=== PATIENT | female | born 1935 | race Caucasian/White ===

== ENCOUNTER 2016-03-18 07:05 | Day surgery (SDC) | payer MEDICARE ==
[~2016-03-18] VITALS: Ht 154.9 cm; Wt 59.0 kg
[~2016-03-18 07:05] MED LIST: ASCO-294 PO; ASPI-973 PO; CHOL10008 PO; GARL1000 PO; LECI518C PO; OMEG-38 PO; Sodium Chloride LOK Flush 10 mL Syringe IV PRN; VITA400C64 PO; VITA80006 PO; fentaNYL-PF 50 mCg/mL 2 mL Inj IVPUSH PRN
[2016-03-18 07:36] VITALS: BP 135/75; PULSE 84; RESP 18; O2SAT 97
[2016-03-18] MEDS: 0.9% Sodium Chloride 1,000 ML IV SCH ×2 (07:48→08:10)
[2016-03-18 08:42] VITALS: BP 140/79; PULSE 75; RESP 14; O2SAT 95
[2016-03-18 08:50] VITALS: BP 137/70; PULSE 75; RESP 17; O2SAT 93
[2016-03-18 09:00] VITALS: BP 134/69; PULSE 75; RESP 17; O2SAT 95
--- NOTE | 2016-03-18 09:10 | ENDO ---
[address] [address] ENDOSCOPY PROCEDURE PATIENT: RONNIE FRENCH : 1935 MR#: [id number] ADMIT: 03/18/2016 JOB ID: [id number] DATE OF SERVICE: 03/18/2016 TYPE OF OPERATION: 1. Esophagogastroduodenoscopy with biopsy. 2. Colonoscopy with biopsy and gastrointestinal spot tattoo. PREOPERATIVE DIAGNOSIS(ES): 1. Gastroesophageal reflux disease. 2. History of tubular adenoma polyps. POSTOPERATIVE DIAGNOSIS(ES): 1. Mild nonerosive gastritis. 2. A 3 mm gastric polyp, removed by cold biopsy forceps. 3. Duodenal polyp versus prominent fold within the posterior bulb, status post biopsy and hemoclip x1. 4. Rectal prolapse. 5. Possible rectal polyp above the dentate line. 6. There were two 3 mm polyps in sigmoid colon, removed by cold biopsy forceps. 7. Mild sigmoid diverticulosis. 8. A broad-based polyp seen at 50 cm from the anus, status post biopsy and gastrointestinal spot tattoo. ANESTHESIA: Fentanyl 100 mcg, Versed 4 mg IV administered. DESCRIPTION OF PROCEDURE: After risks and benefits were explained to the patient, informed consent was obtained. After anesthesia administered, upper endoscope was then inserted in the mouth, intubating into the esophagus, stomach, second portion of duodenum, and mucosa carefully examined. After procedure done, the scope withdrawn and the procedure terminated. FINDINGS: Upon inspection of the esophagus, esophagus appeared normal without masses, ulcers, or lesions. Z-line located at 40 cm from incisors. Upon entering the stomach, there was mild nonerosive gastritis that was seen. Retroflexion showed a gastric polyp that was removed by cold biopsy forceps. Upon entering the duodenum, there was a possible polyp versus prominent fold at the posterior bulb which was biopsied. After biopsy, there was a prominent amount of bleeding that was oozing from the site, and a hemoclip was placed. The duodenal first and second portions were normal. Biopsies were also taken from antrum, body of the stomach and distal esophagus. Upon inspection of the anus, there is a very prominent rectal polyp that was seen. During the entire examination, there were two 3 mm polyps in sigmoid colon, removed by cold biopsy forceps. There was also mild sigmoid diverticulosis. There was also a prominent, broad-based polyp at 50 cm from the anus of which biopsies were taken, and GI spot tattoo was done proximal and distal to this lesion. No other polyps or masses were seen. Retroflexion showed a rectal anal polyp that was located below the dentate line were the rectal polyp was seen. IMPRESSIONS: 1. Mild nonerosive gastritis. 2. Gastric polyp, removed by cold biopsy forceps. 3. Duodenal polyp versus fold at the posterior bulb, status post biopsy and hemoclip placed. 4. Rectal prolapse. 5. Rectal/anal polyp seen below the dentate line on retroflexion. 6. There were two 3 mm polyps seen in the sigmoid colon, removed by cold biopsy forceps. 7. A broad-based polyp that was seen at 50 cm from the anus, status post biopsy and gastrointestinal spot tattoo proximal and distal to lesion. RECOMMENDATIONS: 1. Await pathology results. 2. Referral to General Surgery for evaluation of the rectal prolapse and also the broad-based polyp for evaluation for resection.
--- NOTE | 2016-03-21 15:10 | PATH ---
SURGICAL PATHOLOGY Attending Physician:Paul Dial MD CASE STATUS: Signed Out PATIENT NAME: RONNIE FRENCH PID: [id number] : 1935 DATE COLLECTED:03/18/2016 16:59 SPECIMEN: 1: Duodenum, Biopsy 2: Stomach, Antrum, Biopsy 3: Gastric, Biopsy 4: Stomach, Polyp, Biopsy 5: Esophagus, Biopsy 6: Colon, Biopsy 7: Colon, Biopsy CLINICAL HISTORY: 1: DUODENAL BIOPSY (R/O FOLD VS POLYP) 2: ANTRUM BIOPSY 3: GASTRIC BODY BIOPSY 4: GASTRIC POLYP 5: DISTAL ESOPHAGUS BIOPSY 6: SIGMOID POLYP X1 7: HEPATIC FLEXURE @ 55CM POLYP BIOPSY FINAL DIAGNOSIS: 1. Duodenal Biopsy: Duodenal mucosa with gastric surface metaplasia. Negative for dysplasia and malignancy. 2. Antrum Biopsy: Gastric antral mucosa with focal surface erosion. Negative for Helicobacter organisms. Negative for intestinal metaplasia. Negative for dysplasia and malignancy. 3. Gastric Body Biopsy: Gastric body mucosa with no diagnostic alterations. Negative for intestinal metaplasia. Negative for Helicobacter organisms. Negative for dysplasia and malignancy. 4. Gastric Polyp: Fundic gland polyp. Negative for intestinal metaplasia. Negative for dysplasia and malignancy. 5. Distal Esophagus Biopsy: Squamous mucosa with no diagnostic alterations. Negative for intestinal metaplasia. Negative for dysplasia and malignancy. 6. Sigmoid Colon Polyp x1: Tubular adenoma. 7. Hepatic Flexure at 55 CM Polyp Biopsy: Tubular adenoma, multiple fragments. ICD10 K29.70, D12.5, D12.3, K31.7 GROSS DESCRIPTION: The specimen is received in seven formalin filled containers labeled with the patient's name. 1). The specimen is sublabeled "duodenal" and consists of a 0.3 x 0.3 x 0.3 CM portion of tissue which is entirely submitted in cassette 1A. 2). The specimen is sublabeled "antral" and consists of 2 portions of tissue which aggregate to 0.4 x 0.3 x 0.2 CM. The specimen is entirely submitted in cassette 2A. 3). The specimen is sublabeled "gastric body" and consists of a 0.4 x 0.3 x 0.3 CM portion of tissue which is entirely submitted in cassette 3A. 4). The specimen is sublabeled "gastric polyp" and consists of 2 portions of tissue which aggregate to 0.3 x 0.3 x 0.2 CM. The specimen is entirely submitted in cassette 4A. 5). The specimen is sublabeled "distal esophagus" and consists of 2 portions of tissue which aggregate to 0.5 x 0.3 x 0.2 CM. The specimen is entirely submitted in cassette 5A. 6). The specimen is sublabeled "sigmoid polyp X1" and consists of 2 portions of tissue which aggregate to 0.3 x 0.3 x 0.2 CM. Specimen is entirely submitted in cassette 6A. 7). The specimen is sublabeled "hepatic flexure at 55 CM polyp" and consists of 3 portions of tissue which aggregate to 0.3 x 0.3 x 0.2 CM. The specimen is entirely submitted in cassette 7A. 03/18/2016 DAC MICRO DESCRIPTION: Please see diagnosis. ICD-9 CODES: CPT CODES: 1: 74123 2: 51871 3: 68643 4: 17663 5: 42129 6: 28645 7: 59977 Electronically Signed Out Susy Hale MD [facility] Pathology [facility] [address], [place] [address] Technical component performed at [facility], [facility] [address], [place], [address]
== END 2016-03-18 23:59 | disposition home or self-care (01) ==
LOC: END 07:05
PROVIDERS: ATTEND Internal Medicine Gastroenterology
DX: Z12.11 Encounter for screening for malignant neoplasm of colon (principal); D12.3 Benign neoplasm of transverse colon; D12.5 Benign neoplasm of sigmoid colon; K57.30 Diverticulosis of large intestine without perforation or abscess without bleeding; K62.1 Rectal polyp; K62.3 Rectal prolapse; Z86.010 Personal history of colon polyps; K29.70 Gastritis, unspecified, without bleeding; K31.7 Polyp of stomach and duodenum; K21.9 Gastro-esophageal reflux disease without esophagitis; K22.2 Esophageal obstruction; E78.00 Pure hypercholesterolemia, unspecified; R05 Cough; K58.9 Irritable bowel syndrome, unspecified; Z86.73 Personal history of transient ischemic attack (TIA), and cerebral infarction without residual deficits; Z79.82 Long term (current) use of aspirin
CPT/HCPCS: 43239; 45380; 45381; J2250; J7030

== ENCOUNTER 2016-06-21 13:26 | Emergency (ER) | payer MEDICARE ==
[~2016-06-21] VITALS: Ht 154.9 cm; Wt 59.1 kg
[~2016-06-21 13:26] MED LIST changes: -Sodium Chloride LOK Flush 10 mL Syringe IV PRN; -fentaNYL-PF 50 mCg/mL 2 mL Inj IVPUSH PRN
[2016-06-21 13:28] VITALS: BP 149/79; PULSE 89; RESP 16; O2SAT 94
[2016-06-21 13:55] LABS: BASOPHILS % (AUTO) 0.7 % (0-3); EOSINOPHILS % (AUTO) 2.3 % (0-5); MONOCYTES % (AUTO) 6.7 % (4-12); Mean Corpuscular Hemoglobin 29.7 pg (27.0-35.0); Mean Corpuscular Volume 88.9 fL (81-100); NEUTROPHILS % (AUTO) 63.7 % (40-74); Platelet Count 249 bil/L (150-400)
--- NOTE | 2016-06-21 14:03 | ED.REPORT ---
HPI-Chest Pain 40 and Over Date of Service Jun 21, 2016 ED Provider: Uday Packer MD An 81 year old female with a history of TIA and GERD presents to the ED from complaining of burning chest pain onset yesterday evening that lasted a few hours until bed time. Associated symptoms include nausea and blurry vision earlier in the day yesterday that lasted for several minutes, however she was able to go about her day, eat, and do her chores after symptoms resolved. Nausea and blurry vision gave the patient concern because of her history of TIA , and she came into the ED for further evaluation. She denies any current chest pain, SOB, or any other symptoms. She has had episodes of chest pain in the past , but has no history of heart disease. However she does have a family history of heart disease Nursing Notes Stated Complaint: CHEST PAIN/SENT FROM Chief Complaint: Chest Pain Nursing Notes Reviewed: Yes Allergies: Coded Allergies: Olmlaqj-Ogw-Apw Reductase Inhibitor (Verified Allergy, Unknown, 06/21/16) erythromycin base (Verified Allergy, Unknown, 06/21/16) Scheduled Aspirin (Aspirin) 81 Mg Tablet 81 MG PO DAILY Vitamin E Mixed (Vitamin E) 400 Unit Capsule 400 UNIT PO DAILY Miscellaneous Medications Ascorbate Calcium (Vitamin C) 500 Mg Tablet 500 MG PO Cholecalciferol (Vitamin D3) (Vitamin D3) 1,000 Unit Tab.chew 1,000 UNIT PO Garlic (Garlic Oil) 1,000 Mg Capsule 1,000 MG PO Lecithin (Lecithin) 518 Mg Capsule 518 MG PO [place]-3/Dha/Epa/Fish Oil (Fish Oil 1,000 mg Softgel) 1 Each Capsule 1 EACH PO Vitamin A (Vitamin A) 8,000 Unit Capsule 8,000 UNIT PO General Time Seen by MD: 13:50 Chief Complaint Chest pain Hx Obtained From: Patient Arrived By: Walk-in Sudden in Onset?: No Onset Occurred: Yesterday (yesterday evening) Symptom Duration: 1 - 4 hours (a few hours) Severity: Current: No pain currently Severity: Maximum: Moderate Recent Healthcare: No recent doctor visit Similar Sx Previous: No Past Medical History Past Medical History TIA, 2013 Reports: GERD, Denies: Diabetes mellitus, Hypertension Past Surgical History Reports: Appendectomy, Cholecystectomy Reports: Tubal ligation Family History Father had heart disease at age 59. Brother had [place] at age 58. Denies: Diabetes mellitus, Hypertension Smoking History Never Smoker Ambulatory Status Independent Review of Systems Constitutional: Denies: Chills, Fever Respiratory: Denies: Shortness of breath Cardiovascular: Reports: Chest pain GI: Reports: Nausea Complete sys rev & neg: except as marked. Eyes: Reports: Blurred left, Blurred right Physical Exam Initial Vital Signs Vital Signs (First) Date Time Temp Pulse Resp B/P Pulse Ox O2 Delivery O2 Flow Rate FiO2 06/21/16 13:28 36.6 89 16 149/79 94 Room Air Initial VS: Reviewed General/Constitutional: Awake, Alert Respiratory / Chest: Atraumatic, Breath sounds NL, Breath sounds = bilat, No respiratory distress, No rales, No rhonchi, No wheezing Cardiovascular: Heart rate NL, Regular rhythm, Heart sounds NL, No gallop, No murmurs, No rubs Abdomen: No guarding, No rebound Skin: Atraumatic, Color NL, Warm, Dry Neurologic: Oriented X3, Speech NL, No motor deficits, CN II - XII intact Mental Status: Negative: Confused Head / Eyes: Atraumatic, Normocephalic, PERRL, EOMI ENT: Atraumatic, Mucous membranes moist Interpretation & Diagnostics Lab Results Interpretation Result Diagram: 06/21/16 1345 06/21/16 1345 Test 06/21/16 13:45 White Blood Count 4.4th/mm3 (3.8-10.1) Red Blood Count 4.51mil/mm3 (3.90-5.20) Hemoglobin 13.4g/dL (12.0-15.6) Hematocrit 40.1% (35.0-46.0) Mean Corpuscular Volume 88.9fL (81-100) Mean Corpuscular Hemoglobin 29.7pg (27.0-35.0) Mean Corpuscular Hemoglobin Concent 33.4% (32.0-37.0) Red Cell Distribution Width 13.6% (12.3-15.4) Platelet Count 249bil/L (150-400) Neutrophils (%) (Auto) 63.7% (40-74) Lymphocytes (%) (Auto) 26.6% (14-46) Monocytes (%) (Auto) 6.7% (4-12) Eosinophils (%) (Auto) 2.3% (0-5) Basophils (%) (Auto) 0.7% (0-3) Prothrombin Time 9.7sec (8.1-12.5) Prothromb Time International Ratio 0.91ratio Activated Partial Thromboplast Time 25.6sec (22.8-33.0) Sodium Level 140mEq/L (134-144) Potassium Level 3.8mEq/L (3.5-5.2) Chloride Level 100mEq/L (97-108) Carbon Dioxide Level 25mmol/L (18-29) Blood Urea Nitrogen 19mg/dL (8-27) Creatinine 0.75mg/dL (0.57-1.00) Estimat Glomerular Filtration Rate 106mL/min (>59) Glucose Level 145mg/dL (60-99) Calcium Level 9.2mg/dL (8.5-10.1) Magnesium Level 2.1mg/dL (1.6-2.6) Total Bilirubin 0.3mg/dL (0.0-1.2) Aspartate Amino Transf (AST/SGOT) 18U/L (0-50) Alanine Aminotransferase (ALT/SGPT) 13U/L (0-32) Alkaline Phosphatase 79U/L (25-165) Troponin T < 0.010ug/L (0.0-0.011) Total Protein 7.0g/dL (6.4-8.4) Albumin 4.3g/dL (3.4-5.0) Hold Bartlett Top Tube Received (Received) ECG Interpretation ECG Interpretation: Rate is 84. Sinus rhythm. Left bundle branch block. Time: 13:49 Interpreted by: ED physician X-Ray Chest Interpretation Chest Xray Interpretation: IMPRESSION: No acute cardiopulmonary disease. Dictated by: John COOL Interpreted: Linda Yeboah MD on 06/21/2016 at 14:14 Transcribed by: DESHAUN on 06/21/2016 at 14:14 Interpretation / Wet Read by: Interpret - Radiologist Re-Eval/Medical Decision Source of Hx: Old records Time of Eval: 14:37 Patient Status: Condition improved Re-Evaluation/Progress Note: Rechecked patient, explained test results, diagnosis, and plan for discharge. Patient understands and agrees with the plan. All questions addressed. Counseled Regarding: Diagnosis, Lab results, Need for follow-up Discharge & Departure Primary Impression: Chest pain Ischemic chest pain type: unspecified angina pectoris type Additional Impression: Transient vision disturbance Disposition: Home Patient Instructions: Chest Pain (ED) Additional Instructions: No evidence of acute heart attack today. No evidence of acute stroke today. I am concerned, however, about the symptoms you experienced over the past 24 hours and believe that further evaluation is warranted. Follow-up next week for further evaluation as indicated after discussion with your primary care provider. Follow-up right away for persistent chest pain that lasts more than 10 minutes or any sort of vision, speech, muscle weakness problem that lasts for more than a few moments. Referrals: [facility] (PCP) Noreen Attestation Portions of this note were transcribed by Crescencio Brewster. I, Dr. Packer personally performed the history, physical exam and medical decision-making; I reviewed and confirmed the accuracy of the information in the transcribed note. Signed by: Noreen Jara, 06/21/2016, 1503. copies to: Uday Arriaga MD Jun 21, 2016 14:03 Crescencio Brewster Jun 21, 2016 14:15
[2016-06-21 14:13] LABS: INR 0.91 ratio
--- NOTE | 2016-06-21 14:15 | DRSVH ---
PROCEDURE: X-RAY CHEST ONE VIEW, PORTABLE ([id number]) INDICATIONS: PAIN TECHNIQUE: One view of the chest was acquired. COMPARISON: [facility], CR, CHEST 2VW, 09/12/2012, 15:06. FINDINGS: Surgical changes and devices: None. Lungs and pleura: No pleural effusions or pneumothorax. Lungs are clear. Mediastinum: Mediastinal contours appear normal. Heart size is normal. Bones and chest wall: No suspicious bony lesions. Overlying soft tissues appear unremarkable. IMPRESSION: No acute cardiopulmonary disease. Dictated by: John Keen [facility] Interpreted: Linda Yeboah MD on 06/21/2016 at 14:14 Transcribed by: DESHAUN on 06/21/2016 at 14:14 Approved by: Linda Yeboah MD, PhD on 06/21/2016 at 16:12
[2016-06-21 14:20] LABS: TROPONIN T < 0.010 ug/L (0.0-0.011)
[2016-06-21 14:29] LABS: Magnesium 2.1 mg/dL (1.6-2.6)
[2016-06-21 14:36] VITALS: BP 125/48; PULSE 85; RESP 20; O2SAT 93
[2016-06-21 15:28] VITALS: BP 114/48; PULSE 77; RESP 22; O2SAT 92
== END 2016-06-21 15:24 | disposition home or self-care (01) ==
LOC: SED 13:26
DX: I20.9 Angina pectoris, unspecified (principal); H53.9 Unspecified visual disturbance; K21.9 Gastro-esophageal reflux disease without esophagitis; Z88.8 Allergy status to other drugs, medicaments and biological substances; Z86.73 Personal history of transient ischemic attack (TIA), and cerebral infarction without residual deficits; Z79.82 Long term (current) use of aspirin